=== PATIENT | male | born 1975 | race Two or more races ===

== ENCOUNTER 2022-07-19 11:04 | Inpatient (IN) | payer OTHER ==
[~2022-07-19] VITALS: Ht 177.8 cm; Wt 127.0 kg
--- NOTE | 2022-07-19 11:32 | NUR ---
SE RECIBE PTE ALERTA Y ORIENTADO X3 CUAL REFIER TENER SHAY CELULITIS EN PECTORAL DERECHO QUE COMENZO OMKAR ABCESO. AREA SE OBSERVA INFLAMADA. ROSLYN Y CALIENTE AL TACTO. SE NELSON S/V Y SE UBICA. PTE DE .
== END 2022-07-24 10:26 | disposition home or self-care (01) | DRG 585 ==
LOC: ER 11:04 → SURH 12:01 → EDBD 12:01 → SEC-K 12:01 → SURH 19:00
PROVIDERS: ADMIT Specialist; ATTEND Specialist
PROC: 0H9T0ZZ Drainage of Right Breast, Open Approach (ICD-10-PCS; principal; 2022-07-20 13:30)
DX: N61.1 Abscess of the breast and nipple (principal); E66.9 Obesity, unspecified